=== PATIENT | female | born 1960 | race Caucasian/White ===

== ENCOUNTER 2023-12-04 12:06 | Emergency (ER) | payer OTHER, SELFPAY ==
[2023-12-04 12:10] VITALS: BP 153/89
--- NOTE | 2023-12-04 13:21 | ED.GENMED ---
History of Present Illness
General
Chief Complaint: Back Pain
Source: patient
Exam Limitations: none
Time Seen by Provider: 12/04/23 13:06
Travel History
Have you had any contact with someone who has COVID-19?: No
Do you have any symptoms of coronavirus? Fever > 100 degrees, chills, cough, shortness of breath, sore throat, loss of taste or smell, muscle aches, or headache?: No
History of Present Illness
History of Present Illness:
63-year-old otherwise fairly healthy female presents with worsening lower back pain that radiates down bilateral thighs laterally. No bowel or bladder dysfunction. No urinary incontinence. No perianal anesthesia. She tried ibuprofen at home.
She tried a dose of Valium at home without relief. No fevers. No other complaints at this time
Past History
Past History
ED Past Medical History: Other (renal calc) and Other (Mitral regurgitation/mitral valve prolapse)
ED Past Surgical History: Gynecological and Orthopedic
Social History
Tobacco: Non-smoker
Alcohol: Occasional
Drug: None
Personal:
Living: with family
Phy Exam
Physical Exam
Physical Exam:
General: Well-appearing female no acute respiratory distress
Musculoskeletal exam: Patient is tender over the midline of the lumbar spine at the lumbosacral junction.
Neurologic: Good strength to lower extremities. Bilateral patellar reflexes 2+. Negative straight leg raise bilaterally
Skin: Warm no rash
extremities: No cyanosis
Course
Orders/Labs/Results
Orders:
Orders
12/04/23 13:17
Dexamethasone Sod Phosphate [Decadron] 10 mg IV NOW STA
Ketorolac [Toradol] 30 mg IV NOW STA
diazePAM [Valium Injection] 5 mg IV NOW STA
CR Lumbar Spine 2 Or 3 Views Urgent
Comment:
Reason For Exam: back pain
12/04/23 16:00
HYDROmorphone [Dilaudid] 0.5 mg IV NOW STA
Vital Signs
Initial and Last Documented VS:
Initial Vital Signs
Temp Pulse Resp BP Pulse Ox
98.5 F 77 18 153/89 99
12/04/23 12:10 12/04/23 12:10 12/04/23 12:10 12/04/23 12:10 12/04/23 12:10
Last Documented Vital Signs
Temp Pulse Resp BP Pulse Ox
98.5 F 77 18 153/89 99
12/04/23 12:10 12/04/23 12:10 12/04/23 12:10 12/04/23 12:10 12/04/23 12:10
MDM/Problems Addressed
Differential Diagnosis Includes:
Low back pain with radiation to bilateral lateral thighs. Consider degenerative disc disease versus lumbar strain versus radiculopathy. No signs of cauda equina. Will try to treat symptoms. X-rays pending
*Critical Care Note
Total Time (30-74mins, 75-104mins- exclusive of procedures): Not Applicable
Update Note
Update Note:
X-ray shows degenerative disc disease. Patient slightly better after IV medication. Suspect underlying muscular strain as well. Patient comfortable with discharge home. Will prescribe medicine for inflammation and pain advise follow-up with back
pain specialist.
ED Attending Note
-
Portions of this chart may have been created with voice recognition software.� Occasional wrong word or��sound alike� substitutions may have occurred due to the inherent limitations of voice recognition software.
Discharge Plan
Departure
Patient Disposition: Home (Routine Discharge)
Date of Disposition: 12/04/23
Time of Disposition: 16:01
Patient with high blood pressure during this ER visit?: No
Discharge Problem:
Low back pain
Instructions: Low Back Pain (DC)
Prescriptions:
New
prednisone 10 mg Tablet
See Rx Instructions .ROUTE .COMPLEX Qty: 30 0RF
Rx Instructions:
Take By Mouth:
40 mg daily x3 days, 30 mg daily x3 days,
20 mg daily x3 days, 10 mg daily x3 days.
oxycodone-acetaminophen [Percocet] 5-325 mg tablet
1 tab PO TID PRN (Reason: Pain) Qty: 10 0RF
No Action
ciprofloxacin HCl 500 MG tablet
500 mg PO BID Qty: 6 0RF
oxycodone-acetaminophen 5 MG/325 MG tablet
2 tab PO Q4HPRN PRN (Reason: severe pain) Qty: 15 0RF
Referrals:
Jose Patel DO [Non-Admitting Privileges] -
Bibi Ruiz PA-C [Family Provider] -
Activity Restrictions/Additional Instructions:
Use heat to the lower back. Take anti-inflammatories and pain medicine as needed. Return for worsening symptoms otherwise follow-up with orthopedics
Interventions
Interventions:
*Risk Screen - Suicide Last Done: 12/04/23 13:04
*Neglect/Abuse Screening Last Done: 12/04/23 13:04
ED-Musculoskeletal Assessment Last Done: 12/04/23 13:04
[2023-12-04] MEDS: TORADOL 30 MG IV (13:34)
[2023-12-04] MEDS: VALIUM INJECTION 5 MG IV (13:35)
[2023-12-04] MEDS: DECADRON 10 MG IV (13:35)
[2023-12-04] MEDS: DILAUDID 0.5 MG IV (16:03)
[2023-12-04 16:16] VITALS: BP 140/80
== END 2023-12-04 16:17 | disposition home or self-care (01) ==
LOC: EMR 12:06
PROVIDERS: EMERGENCY PHYSICIAN Emergency Medicine; FAMILY PHYSICIAN Physician Assistant Medical
DX: M54.50 Low back pain, unspecified (principal); I34.0 Nonrheumatic mitral (valve) insufficiency; I34.1 Nonrheumatic mitral (valve) prolapse
CPT/HCPCS: 99283; 96374; 96375; 72100

== ENCOUNTER → 2024-07-04 12:53 | Outpatient (REF) | payer OTHER, SELFPAY | LOC: WDC 12:53 | PROVIDERS: ATTENDING PHYSICIAN Family Medicine | DX: Z12.31 Encounter for screening mammogram for malignant neoplasm of breast (principal) | CPT/HCPCS: 77063; 77067 ==

== ENCOUNTER → 2024-07-13 06:25 | Day surgery (SDC) | payer OTHER, SELFPAY | LOC: GI 06:25 | PROVIDERS: ATTENDING PHYSICIAN Internal Medicine Gastroenterology | DX: Z12.11 Encounter for screening for malignant neoplasm of colon (principal); Z80.0 Family history of malignant neoplasm of digestive organs; Z86.010 Personal history of colon polyps; K64.8 Other hemorrhoids; K57.30 Diverticulosis of large intestine without perforation or abscess without bleeding | CPT/HCPCS: G0105 ==

== ENCOUNTER → 2025-01-20 13:54 | Outpatient (REF) | payer OTHER, SELFPAY | LOC: RCS 13:54 | PROVIDERS: ATTENDING PHYSICIAN Student in an Organized Health Care Education/Training Program; FAMILY PHYSICIAN Family Medicine | DX: R00.2 Palpitations (principal); R07.2 Precordial pain | CPT/HCPCS: 93017 ==

== ENCOUNTER → 2025-01-23 09:15 | Outpatient (REF) | payer OTHER, SELFPAY | LOC: RCS 09:15 | PROVIDERS: ATTENDING PHYSICIAN Student in an Organized Health Care Education/Training Program; FAMILY PHYSICIAN Family Medicine | DX: R00.2 Palpitations (principal) | CPT/HCPCS: 93225; 93226 ==

== ENCOUNTER → 2025-04-05 13:11 | Outpatient (REF) | payer OTHER, SELFPAY | LOC: HWRAD 13:11 | PROVIDERS: ATTENDING PHYSICIAN Family Medicine | DX: M79.605 Pain in left leg (principal) | CPT/HCPCS: 93971 ==

== ENCOUNTER → 2025-08-05 11:10 | Outpatient (REF) | payer OTHER, SELFPAY | LOC: WDC 11:10 | PROVIDERS: ATTENDING PHYSICIAN Family Medicine | DX: Z12.31 Encounter for screening mammogram for malignant neoplasm of breast (principal) | CPT/HCPCS: 77063; 77067 ==